=== PATIENT | male | born 1995 | race Caucasian/White ===

== ENCOUNTER 2017-01-15 12:14 | Emergency (ER) | payer OTHER ==
[~2017-01-15] VITALS: Ht 167.6 cm; Wt 70.0 kg
--- NOTE | 2017-01-15 12:22 | PD ---
Physical Exam Time Seen by Provider: 12:20 Narrative 21yo M c/o SOB x 3days. Saw at [facility] 2 nights ago and told it was anxiety; had EKG and chest x-ray. Denies chest pain, hx DVT/PE. Patient seen in triage. VS reviewed. Awaiting bed placement. MDM Supervised Visit with BETTIE: No Scripts No Active Prescriptions or Reported Meds Rosanna Mcdonald Jan 15, 2017 12:22
[2017-01-15 12:23] VITALS: BP 168/90; PULSE 89; RESP 24; TEMP 98.2; O2SAT 99
[2017-01-15 13:06] VITALS: BP 138/85; PULSE 69; RESP 16; O2SAT 100
[2017-01-15] MEDS ORDERED: SODIUM CHLORIDE 0.9% FLUSH 10 ML FLUSH IVF PRN (13:45)
[2017-01-15] MEDS ORDERED: LORazepam 2 MG/ML VIAL IV PUSH ONE (13:45)
[2017-01-15 13:46] LABS: BLOOD GAS BASE EXCESS -1.1 mmol/L (-2-2); BLOOD GAS CARBOXYHEMOGLOBIN 1.1 % (0-4); BLOOD GAS HCO3 21 mmol/L (22-26); BLOOD GAS METHEMOGLOBIN 0.7 % (0-2); BLOOD GAS O2 HGB SATURATION 97 % (90-100); BLOOD GAS OXYGEN CONTENT 21.8 Vol % (12.0-20.0); BLOOD GAS PCO2 26 mmHg (38-42); BLOOD GAS PO2 100 mmHG (61-120); CRITICAL VALUE YES; DRAW SITE RT RADIAL; NUMBER OF ARTERIAL PUNCTURES 1; OXYGEN DEVICE RA; STAT YES; TEMP CORR TO 98.6; ULNAR PULSE PRESENT
[2017-01-15 14:10] VITALS: O2SAT 100
[2017-01-15 14:16] LABS: BASOPHIL % 0.3 % (0.0-2.0); EOSINOPHIL # 0.2 TH/MM3 (0-0.4); EOSINOPHIL % 2.1 % (0.0-4.0); HEMATOCRIT 48.3 % (39.0-51.0); HEMO FLAGS DIFF FINAL; LYMPH % 17.3 % (9.0-44.0); LYMPHOCYTE # 1.7 TH/MM3 (1.0-4.8); MEAN CELL VOLUME 93.3 FL (80.0-100.0); MEAN CORPUSCULAR HEMOGLOBIN 31.2 PG (27.0-34.0); MEAN CORPUSCULAR HGB CONC 33.4 % (32.0-36.0); MONO % 7.9 % (0.0-8.0); NEUT % 72.4 % (16.0-70.0); PLATELET COUNT 213 TH/MM3 (150-450); RED BLOOD COUNT 5.18 MIL/MM3 (4.50-5.90); RED CELL DISTRIBUTION WIDTH 12.9 % (11.6-17.2); WHITE BLOOD COUNT 9.7 TH/MM3 (4.0-11.0)
[2017-01-15 14:31] LABS: ANION GAP 12 MEQ/L (5-15); BLOOD UREA NITROGEN 11 MG/DL (7-18); CHLORIDE 103 MEQ/L (98-107); GLOMERULAR FILTRATION RATE 95 ML/MIN (>89); POTASSIUM 3.8 MEQ/L (3.5-5.1); SODIUM (NA) 139 MEQ/L (136-145)
--- NOTE | 2017-01-15 14:33 | RADRPT ---
EXAM DATE/TIME: 01/15/2017 14:18 [facility] COMPARISON: No previous studies available for comparison. INDICATIONS : Shortness of breath for 3 days. MEDICAL HISTORY : None. SURGICAL HISTORY : None. ENCOUNTER: Initial ACUITY: 3 days PAIN SCORE: 0/10 LOCATION: Bilateral chest FINDINGS: A single view of the chest demonstrates the lungs to be symmetrically aerated without evidence of mas s, infiltrate or effusion. The cardiomediastinal contours are unremarkable. Osseous structures are intact.CONCLUSION: No acute disease. Yaniv Roland MD on January 15, 2017 at 14:31 Board Certified Radiologist. This report was verified electronically.
[2017-01-15 14:35] LABS: CREATINE KINASE 123 U/L (39-308)
--- NOTE | 2017-01-15 14:46 | PD ---
HPI . Dyspnea Chief Complaint: Anxiety Time Seen by Provider: 13:24 Travel History International Travel<30 days: No Contact w/Intl Traveler<30days: No Traveled to known affect area: No History of Present Illness HPI Patient presents with a 3 day history of dyspnea. He states that sometimes he feels like he can only get 50% of the good breath. When he is feeling better, he feels like he can get a 70% breath. He eyes any cough or fever. He does not note any exacerbating or relieving factors. He was seen at an outside facility 2 days ago for same and reports a normal EKG and chest x-ray. He states that they diagnosed him with anxiety and gave him a prescription for an anxiolytic. He has failed to have that prescription filled. He states that he does not believe that it is anxiety. He states that his symptoms became acutely worse while he was at work today. He was nearer to this facility so asked his boss to bring him here. PFSH Past Medical History ADHD: Yes Neurologic: Yes (NEUROPATHY) Immunizations Current: Yes Past Surgical History Abdominal Surgery: Yes (RIGHT AND LEFT HERNIA REPAIR) Other Surgery: Yes Social History Alcohol Use: Yes Tobacco Use: Yes Substance Use: No Allergies-Medications (Allergen,Severity, Reaction): Coded Allergies: Neurontin (Verified Allergy, Severe, Seizures, 01/15/17) Reported Meds & Prescriptions Reported Meds & Active Scripts Active No Active Prescriptions or Reported Medications Review of Systems Except as stated in HPI: all other systems reviewed are Neg HENT: Positive: Lightheadedness Respiratory: Positive: Shortness of Breath Neurologic: Positive: Paresthesia Physical Exam Narrative GENERAL: Patient is awake and alert and in no acute distress. SKIN: Warm and dry. HEAD: Atraumatic. Normocephalic. EYES: Pupils equal and round. Extraocular movements are intact. ENT: No nasal bleeding or discharge. Mucous membranes pink and moist. NECK: Trachea midline. Neck is supple. CARDIOVASCULAR: Regular rate and rhythm. Heart sounds are normal. RESPIRATORY: No accessory muscle use. Lungs are clear throughout. GASTROINTESTINAL: Abdomen soft, non-tender, nondistended. MUSCULOSKELETAL: No obvious deformities. No edema. NEUROLOGICAL: Awake and alert. No obvious cranial nerve deficits. Motor grossly within normal limits. Normal speech. PSYCHIATRIC: Appropriate mood and affect; insight and judgment normal. Data Data Last Documented VS Vital Signs Date Time Temp Pulse Resp B/P Pulse Ox O2 Delivery O2 Flow Rate FiO2 01/15/17 14:10 100 Room Air 01/15/17 13:06 69 16 138/85 01/15/17 12:23 98.2 Orders Complete Blood Count With Diff (01/15/17 13:32) Basic Metabolic Panel (Bmp) (01/15/17 13:32) B-Type Natriuretic Peptide (01/15/17 13:32) D-Dimer (01/15/17 13:32) Ckmb (Isoenzyme) Profile (01/15/17 13:32) Troponin I (01/15/17 13:32) Arterial Blood Gas (Abg) (01/15/17 13:32) Iv Access Insert/Monitor (01/15/17 13:32) Electrocardiogram (01/15/17 13:32) Ecg Monitoring (01/15/17 13:32) Oximetry (01/15/17 13:32) Oxygen Administration (01/15/17 13:32) Chest, Single Ap (01/15/17 13:32) Sodium Chloride 0.9% Flush (Ns Flush) (01/15/17 13:45) Lorazepam Inj (Ativan Inj) (01/15/17 13:45) CKMB (01/15/17 14:00) CKMB% (01/15/17 14:00) Labs Laboratory Tests Test 01/15/17 01/15/17 13:37 14:00 Blood Gas Puncture Site RT RADIAL Blood Gas Patient Temperature 98.6 Blood Gas HCO3 21 mmol/L Blood Gas Base Excess -1.1 mmol/L Blood Gas Oxygen Saturation 97 % Arterial Blood pH 7.53 Arterial Blood Partial 26 mmHg Pressure CO2 Arterial Blood Partial 100 mmHG Pressure O2 Arterial Blood Oxygen Content 21.8 Vol % Arterial Blood 1.1 % Carboxyhemoglobin Arterial Blood Methemoglobin 0.7 % Blood Gas Hemoglobin 16.0 G/DL Oxygen Delivery Device RA White Blood Count 9.7 TH/MM3 Red Blood Count 5.18 MIL/MM3 Hemoglobin 16.1 GM/DL Hematocrit 48.3 % Mean Corpuscular Volume 93.3 FL Mean Corpuscular Hemoglobin 31.2 PG Mean Corpuscular Hemoglobin 33.4 % Concent Red Cell Distribution Width 12.9 % Platelet Count 213 TH/MM3 Mean Platelet Volume 8.3 FL Neutrophils (%) (Auto) 72.4 % Lymphocytes (%) (Auto) 17.3 % Monocytes (%) (Auto) 7.9 % Eosinophils (%) (Auto) 2.1 % Basophils (%) (Auto) 0.3 % Neutrophils # (Auto) 7.0 TH/MM3 Lymphocytes # (Auto) 1.7 TH/MM3 Monocytes # (Auto) 0.8 TH/MM3 Eosinophils # (Auto) 0.2 TH/MM3 Basophils # (Auto) 0.0 TH/MM3 CBC Comment DIFF FINAL Differential Comment D-Dimer Quantitative (PE/DVT) LESS THAN 0.19 MG/L FEU Sodium Level 139 MEQ/L Potassium Level 3.8 MEQ/L Chloride Level 103 MEQ/L Carbon Dioxide Level 24.0 MEQ/L Anion Gap 12 MEQ/L Blood Urea Nitrogen 11 MG/DL Creatinine 0.98 MG/DL Estimat Glomerular Filtration 95 ML/MIN Rate Random Glucose 93 MG/DL Calcium Level 9.1 MG/DL Total Creatine Kinase 123 U/L Creatine Kinase MB 1.0 NG/ML Troponin I LESS THAN 0.02 NG/ML B-Type Natriuretic Peptide 3 PG/ML MDM Medical Decision Making Medical Screen Exam Complete: Yes Emergency Medical Condition: Yes Interpretation(s) EKG shows a normal sinus rhythm with no ischemic change. Differential Diagnosis Differential diagnosis of dyspnea includes but is not limited to congestive heart failure, pneumonia, wheezing, pneumothorax, pulmonary embolism Narrative Course Patient presents for evaluation of dyspnea. ABG Test 01/15/17 13:37 Blood Gas HCO3 21 L mmol/L Blood Gas Base Excess -1.1 mmol/L Blood Gas Oxygen Saturation 97 % Arterial Blood pH 7.53 *H Arterial Blood Partial 26 L mmHg Pressure CO2 Arterial Blood Partial 100 mmHG Pressure O2 Arterial Blood Oxygen Content 21.8 H Vol % Arterial Blood 1.1 % Carboxyhemoglobin Arterial Blood Methemoglobin 0.7 % Blood Gas Hemoglobin 16.0 G/DL Oxygen Delivery Device RA This confirms the suspected diagnosis of hyperventilation. Chest x-ray is normal. The chest x-ray was independently viewed by me. CBC & BMP Diagram 01/15/17 14:00 D-dimer is normal at 0.19. Total CK is normal at 123. Troponin is normal at less than 0.02. BNP is 3. Diagnosis Primary Impression: Hyperventilation Additional Impression: Anxiety Referrals: Primary Care Physician Patient Instructions: Anxiety (DC), General Instructions, Hyperventilation (ED) Scripts No Active Prescriptions or Reported Meds Disposition: 01 DISCHARGE HOME Condition: Stable Donna Leon MD Jan 15, 2017 14:46
[2017-01-15 15:32] VITALS: BP 132/63
--- NOTE | 2017-01-16 22:50 | EKG ---
Date Performed: 01/15/2017 Time Performed: 14:19:12 PTAGE: 21 years EKG: Sinus rhythm WITH SINUS ARRHYTHMIA POSSIBLE LEFT ATRIAL ENLARGEMENT INCOMPLETE RIGHT BUNDLE BRANCH BLOCK BORDERLI NE ECG NO PREVIOUS TRACING DOCTOR: Genia Delgadillo Interpretating Date/Time 01/16/2017 22:47:41
== END 2017-01-15 15:34 | disposition home or self-care (01) ==
LOC: NEPD 12:14
DX: R06.4 Hyperventilation (principal); F41.9 Anxiety disorder, unspecified; R94.31 Abnormal electrocardiogram [ECG] [EKG]; Z72.0 Tobacco use; Z86.69 Personal history of other diseases of the nervous system and sense organs; Z86.59 Personal history of other mental and behavioral disorders
CPT/HCPCS: 36600; 71010; 80048; 82550; 82552; 82805; 83880; 84484; 85025; 85379; 93005; 96374; 99285; J2060